=== PATIENT | female | born 1950 | race Caucasian/White ===

== ENCOUNTER 2022-04-10 10:46 | Emergency (ER) | payer MEDICARE, OTHER ==
[~2022-04-10] VITALS: Ht 170.2 cm; Wt 56.2 kg
[2022-04-10 12:09] LABS: BASOPHILS ABSOLUTE AUTO 0.04 K/mm3 (0.00-0.23); BASOPHILS PERCENT AUTO 1 % (0-2); EOSINOPHILS ABSOLUTE AUTO 0.05 K/mm3 (0.00-0.68); EOSINOPHILS PERCENT AUTO 1 % (0-6); Hematocrit 38.5 % (33.0-51.0); Hemoglobin 12.6 g/dL (11.5-16.0); IMMATURE GRAN ABSOLUTE AUTO 0.02 K/mm3 (0.00-0.10); IMMATURE GRAN PERCENT AUTO 0 % (0-1); LYMPHOCYTES ABSOLUTE AUTO 1.13 K/mm3 (0.84-5.20); LYMPHOCYTES PERCENT AUTO 15 % (21-46); MONOCYTES ABSOLUTE AUTO 0.52 K/mm3 (0.16-1.47); MONOCYTES PERCENT AUTO 7 % (4-13); Mean Corpuscular HGB 31.3 pg (26.0-34.0); Mean Corpuscular HGB Conc 32.7 g/dL (31.5-36.5); Mean Corpuscular Volume 96 fL (80-100); Mean Platelet Volume 10.2 fL (9.1-12.4); NEUTROPHILS ABSOLUTE AUTO 5.97 K/mm3 (1.96-9.15); NEUTROPHILS PERCENT AUTO 77 % (41-73); Platelet Count 238 K/mm3 (150-400); RDW Coefficient Variation 11.5 % (11.7-14.2); RDW Standard Deviation 40.7 fL (35.1-46.3); Red Blood Cell Count 4.02 M/mm3 (3.80-5.20); White Blood Cell Count 7.73 K/mm3 (4.00-11.30)
[2022-04-10 12:28] LABS: Albumin, Blood 3.9 g/dL (3.4-5.0); Albumin/Globulin Ratio 0.9 (0.8-1.8); Bilirubin, Total 0.4 mg/dL (0.1-1.0); Bun/Creatinine Ratio 16.5 (12.0-20.0); C-REACTIVE PROTEIN, EXT RANGE 9.09 mg/dL (0.000-0.300); Calcium, Blood 9.7 mg/dL (8.5-10.1); Creatinine, Blood 0.67 mg/dL (0.40-1.00); Globulin, Blood 4.2 g/dL (2.2-4.0); Potassium, Blood 3.3 mmol/L (3.5-5.5); Total Protein, Blood 8.1 g/dL (6.4-8.2)
[2022-04-10 12:48] LABS: Body Fluid Crystals NEG (NEGATIVE)
[2022-04-10 13:47] LABS: WBC Count, Synovial Fluid 499 /mm3 (0-180)
[2022-04-10 14:07] LABS: Appearance, Synovial Fluid Clear (Clear); Color, Synovial Fluid Pale Yellow (None-P Yel); RBC Count, Synovial Fluid 213 /mm3 (0-0)
[2022-04-10 14:12] LABS: Lymphs, Synovial Fluid 34 % (0-15); Monocytes/Macrophages, Synovia 19 % (0-65); Neutrophils, Synovial Fluid 47 % (0-24)
[2022-04-10] MEDS ORDERED: CEPH500 PO (14:33)
== END 2022-04-10 14:49 | disposition home or self-care (01) ==
LOC: ER 10:46
PROVIDERS: Student in an Organized Health Care Education/Training Program
DX: L03.115 Cellulitis of right lower limb (principal); M25.471 Effusion, right ankle; I10 Essential (primary) hypertension
CPT/HCPCS: 73610; 80053; 83605; 85025; 85651; 86140; 89051; 89060; A9270; J1885; J7030

== ENCOUNTER → 2023-07-03 | Outpatient (CLI) | payer MEDICARE, OTHER ==
[~2023-07-03] MED LIST: CEPH500 PO
== END ==
LOC: LAB SHORT 10:05 → LAB 10:05
PROVIDERS: Physician Assistant
DX: G89.4 Chronic pain syndrome (principal); M19.041 Primary osteoarthritis, right hand; M19.042 Primary osteoarthritis, left hand; M48.56XS Collapsed vertebra, not elsewhere classified, lumbar region, sequela of fracture; M54.51 Vertebrogenic low back pain; Z79.899 Other long term (current) drug therapy
CPT/HCPCS: G0480

== ENCOUNTER → 2023-09-28 | Outpatient (CLI) | payer MEDICARE, OTHER ==
[2023-10-02 19:45] LABS: 6-ACETYLMORPHINE, URN, QUANT <10 ng/mL; CODEINE, URN, QUANT <20 ng/mL; HYDROCODONE, URN, QUANT <20 ng/mL; HYDROMORPHONE, URN, QUANT <20 ng/mL; MORPHINE, URN, QUANT <20 ng/mL; NORHYDROCODONE, URN, QUANT <20 ng/mL; NOROXYCODONE, URN, QUANT 296 ng/mL; NOROXYMORPHONE, URN, QUANT 114 ng/mL; OXYCODONE, URN, QUANT 154 ng/mL; OXYMORPHONE, URN, QUANT <20 ng/mL
== END ==
LOC: LAB SHORT 11:44 → LAB 11:44
PROVIDERS: Physician Assistant
DX: Z51.81 Encounter for therapeutic drug level monitoring (principal); Z79.899 Other long term (current) drug therapy
CPT/HCPCS: G0480

== ENCOUNTER → 2024-03-28 | Outpatient (CLI) | payer MEDICARE, OTHER ==
[2024-04-01 20:43] LABS: BUPRENORPHINE GLUC,URN,QUANT <5 ng/mL; BUPRENORPHINE,URN,QUANT <2 ng/mL; NALOXONE,URN,QUANT <100 ng/mL; NORBUPRENORPHINE GLUC,UR,QUANT <5 ng/mL; NORBUPRENORPHINE,URN,QUANT <2 ng/mL
[2024-04-01 21:42] LABS: 6-ACETYLMORPHINE, URN, QUANT <10 ng/mL; CODEINE, URN, QUANT <20 ng/mL; HYDROCODONE, URN, QUANT <20 ng/mL; HYDROMORPHONE, URN, QUANT <20 ng/mL; MORPHINE, URN, QUANT <20 ng/mL; NORHYDROCODONE, URN, QUANT <20 ng/mL; NOROXYCODONE, URN, QUANT 407 ng/mL; NOROXYMORPHONE, URN, QUANT 143 ng/mL; OXYCODONE, URN, QUANT 203 ng/mL; OXYMORPHONE, URN, QUANT <20 ng/mL
== END | disposition home or self-care (01) ==
LOC: LAB 10:57 → LAB SHORT 10:57
PROVIDERS: Physician Assistant
DX: Z51.81 Encounter for therapeutic drug level monitoring (principal); Z79.899 Other long term (current) drug therapy
CPT/HCPCS: G0480

== ENCOUNTER → 2024-10-01 | Outpatient (CLI) | payer MEDICARE, OTHER ==
[2024-10-04 18:53] LABS: 6-ACETYLMORPHINE, URN, QUANT <10 ng/mL; CODEINE, URN, QUANT <20 ng/mL; HYDROCODONE, URN, QUANT <20 ng/mL; HYDROMORPHONE, URN, QUANT <20 ng/mL; MORPHINE, URN, QUANT <20 ng/mL; NORHYDROCODONE, URN, QUANT <20 ng/mL; NOROXYCODONE, URN, QUANT 1647 ng/mL; NOROXYMORPHONE, URN, QUANT 34 ng/mL; OXYCODONE, URN, QUANT 489 ng/mL; OXYMORPHONE, URN, QUANT <20 ng/mL
== END ==
LOC: LAB 10:38 → LAB SHORT 10:38
PROVIDERS: Physician Assistant
DX: Z51.81 Encounter for therapeutic drug level monitoring (principal); Z79.899 Other long term (current) drug therapy
CPT/HCPCS: G0480

== ENCOUNTER → 2025-07-03 | Outpatient (CLI) | payer MEDICARE, OTHER ==
[2025-07-06 15:17] LABS: 6-ACETYLMORPHINE, URN, QUANT <10 ng/mL; CODEINE, URN, QUANT <20 ng/mL; HYDROCODONE, URN, QUANT <20 ng/mL; HYDROMORPHONE, URN, QUANT <20 ng/mL; MORPHINE, URN, QUANT <20 ng/mL; NORHYDROCODONE, URN, QUANT <20 ng/mL; NOROXYCODONE, URN, QUANT 970 ng/mL; NOROXYMORPHONE, URN, QUANT 23 ng/mL; OXYCODONE, URN, QUANT 259 ng/mL; OXYMORPHONE, URN, QUANT <20 ng/mL
== END ==
LOC: LAB SHORT 10:55 → LAB 10:55
PROVIDERS: Physician Assistant
DX: Z51.81 Encounter for therapeutic drug level monitoring (principal); Z79.899 Other long term (current) drug therapy
CPT/HCPCS: G0480